=== PATIENT | female | born 1965 | race Caucasian/White ===

== ENCOUNTER 2018-07-04 20:31 | Emergency (ER) | payer SELFPAY ==
[~2018-07-04] VITALS: Ht 160 cm; Wt 48.5 kg
[2018-07-04 20:44] VITALS: Ht 160 cm; Wt 48.5 kg
[2018-07-04 21:01] LABS: BASOPHILS 0.4 % (0-2); EOSINOPHILS 1.2 % (0-7); HEMATOCRIT 43.1 % (36.0-48.0); HEMOGLOBIN 14.5 g/dL (12-16); IMMATURE GRANULOCYTES 0.3 % (0-5); LYMPHOCYTES 20.3 % (15-50); MCH 30.9 pg (26.0-34.0); MCHC 33.6 g/dL (31.0-37.0); MCV 91.9 fL (80.0-100.0); MEAN PLATELET VOLUME 10.7 fL (7.4-10.4); MONOCYTES 7.2 % (2-11); NEUTROPHILS 70.6 % (40-80); PLATELET COUNT 263 10x3/uL (130-400); RBC 4.69 10x6/uL (4.00-5.40); RDW 13.8 % (11.5-14.5); WBC 10.1 10x3/uL (4.8-10.8)
[2018-07-04 21:15] LABS: ALBUMIN 3.7 g/dL (3.4-5.0); ALKALINE PHOSPHATASE 153 U/L (46-116); ALT (SGPT) 9 U/L (10-68); BILIRUBIN - TOTAL 0.15 mg/dL (0.2-1.3); CALC OSMOLALITY 282 mosm/kg (275-300); CALCIUM 8.6 mg/dL (8.5-10.1); CARBON DIOXIDE 24.1 mmol/L (21.0-32.0); CHLORIDE - SERUM 105 mmol/L (98-107); CREATININE - SERUM 1.3 mg/dL (0.6-1.3); GLUCOSE 90 mg/dL (74-106); PROTEIN - SERUM 7.1 g/dL (6.4-8.2); SODIUM 140 mmol/L (136-145); UREA NITROGEN 23 mg/dL (7-18); eGFR NON AFRICAN AMERICAN 46 mL/min (90-120)
[2018-07-04 21:18] LABS: AMYLASE - SERUM 73 U/L (25-115); LIPASE 320 U/L (73-393); TROPONIN-I < 0.017 ng/mL (0.000-0.060)
[2018-07-04 21:51] LABS: APPEARANCE CLEAR (CLEAR); BILIRUBIN NEGATIVE (NEGATIVE); COLOR STRAW (YELLOW); GLUCOSE NEGATIVE (NEGATIVE); KETONE NEGATIVE (NEGATIVE); NITRITE NEGATIVE (NEGATIVE); PROTEIN NEGATIVE (NEGATIVE); SPECIFIC GRAVITY 1.015 (1.005-1.020); UROBILINOGEN NORMAL (NORMAL)
[2018-07-04 21:53] LABS: AMORPHOUS SEDIMENT <1+ /lpf (NONE SEEN); BACTERIA FEW /hpf (NONE SEEN); EPITHELIAL CELLS 0-5 /hpf (0-5); RED CELLS - URINE 0-5 /hpf (0-5); WHITE CELLS - URINE 0-5 /hpf (0-5)
[2018-07-04] MEDS ORDERED: TORADOL10 MG PO (23:05)
[2018-07-04] MEDS ORDERED: ZOFRAN4 MG PO (23:05)
[2018-07-04] MEDS ORDERED: FLOMAX0.4 MG PO (23:05)
[2018-07-04] MEDS ORDERED: CIPRO500 MG PO (23:05)
[2018-07-04 23:20] VITALS: BP 125/77
== END 2018-07-04 23:20 | disposition home or self-care (01) ==
LOC: D.ER 20:31
PROVIDERS: Family Medicine
DX: N20.0 Calculus of kidney (principal)